=== PATIENT | female | born 1985 | race Caucasian/White ===

== ENCOUNTER 2020-03-05 17:56 | Emergency (ER) | payer MEDICAID, SELFPAY ==
[2020-03-05 18:18] VITALS: BP 132/84; PULSE 98; RESP 16; TEMP 37.5; O2SAT 98; BMI 46.3
--- NOTE | 2020-03-05 18:43 | CT_ITS ---
EXAMINATION: CT abdomen pelvis wo con CLINICAL INFORMATION: Reason for Exam lower back pain, flank pain, dysuria COMPARISON: No prior CT available for comparison. TECHNIQUE: Multidetector volumetric imaging was performed from the superior aspect of the liver through the pubic symphysis noncontrasted study. Sagittal and coronal reformatted images were obtained on the technologist's workstation. This CT examination was performed using dose optimization techniques as appropriate, variously including the following: *Automated exposure control *Adjustment of mA and/or kV according to patient size (this includes techniques or standardized protocols for targeted exams where dose is matched to indication/reason for exam; i.e. extremities or head) *Use of iterative reconstruction technique DLP: 965 mGy-cm FINDINGS: LOWER THORAX: Included lung bases are clear. HEPATOBILIARY: No focal hepatic lesions. No biliary ductal dilatation. GALLBLADDER: Gallbladder unremarkable. SPLEEN: Spleen is enlarged measuring up to 13.5 cm. PANCREAS: No focal mass or ductal dilatation. STOMACH AND GASTROINTESTINAL TRACT: Stomach is grossly unremarkable. There is no bowel distention or thickening. No CT evidence of appendicitis. ADRENALS: No adrenal nodules. KIDNEYS/URETERS: No hydronephrosis, stones or solid mass lesions. URINARY BLADDER: Partially decompressed. PELVIC VISCERA: Unremarkable PERITONEUM: No free air or fluid. LYMPH NODES: No lymphadenopathy. VASCULAR:Abdominal aorta normal in size, no aneurysm found. BONES, ABDOMINAL WALL AND SOFT TISSUES: Age-appropriate changes of the spine and skeletal system, no destructive osteolytic or osteosclerotic bone lesion found CT/CT abdomen pelvis wo con IMPRESSION: Spleen is borderline enlarged 13.5 cm exam otherwise normal. No CT explanation for patient's pain symptoms. No evidence of appendicitis, normal-size appendix identified. No bowel obstruction. No kidney stones or hydronephrosis.
--- NOTE | 2020-03-05 18:46 | ED_ITS ---
HPI - Back Pain/Injury General Chief Complaint: Back Pain/Injury Stated Complaint: BACK PAIN Time Seen by Provider: 03/05/20 18:43 Source: patient Mode of arrival: ambulatory Limitations: no limitations History of Present Illness HPI Narrative: 34-year-old female with no significant past medical history presents with 1 week of lower back pain, and urinary symptoms. States the pain has gotten worse over time and has been unrelieved with Motrin and Tylenol. She has had intermittent chills but has not taken a temperature to reported fever. She does not describe any chest pain or pressure, palpitations, shortness of breath, abdominal distention, fevers, edema, weakness, and any other concerns at this time. MD elicited complaint: back pain Onset (ago): day(s) (7) Timing: constant Severity: moderate (7) Pain scale (0-10): 7 Similar Symptoms Previously: No Quality: aching and throbbing Location: lumbar spine, left flank and right flank Exacerbating factors: movement and supine positioning Relieving factors: none Context: unknown Associated symptoms: increased urinary urgency, increased urinary frequency and chills Treatments prior to arrival: NSAIDS and acetaminophen Work related injury: No Related Data Previous Rx's Medication Instructions Recorded ibuprofen 600 mg PO Q6H PRN #60 tab 03/05/20 Allergies Allergy/AdvReac Type Severity Reaction Status Date / Time No Known Allergies Allergy Verified 03/05/20 18:43 Review of Systems Review of Systems: Constitutional: No Weight loss, No Fever, Positive Chills, ENT/Mouth: No Hearing loss, No Ear Pain, No Nasal Congestion, No Sinus Pain, No Hoarseness, No sore throat, No Rhinorrhea, No Swallowing Difficulty Cardiovascular: No Chest Pain, No SOB Respiratory: No Cough, No Dyspnea Gastrointestinal: No Nausea, No Vomiting, No Diarrhea, No abdominal Pain, No Hematochezia, No Melena Genitourinary: positive Dysuria, positive Urinary Frequency, No Hematuria, No Urinary Incontinence, Musculoskeletal: positive back pain Skin: No Skin Lesions, No rash Neuro: No Weakness, No Numbness, No Paresthesias, no loss of bowel or bladder incontinence, no saddle anesthesia Yes all other systems are reviewed and are negative [facility] Past Medical History Attestation statement: The following information was validated with the patient. Medical History PCOS (polycystic ovarian syndrome) Social History Social History Smoking Status: Never smoker Use of substances other than those prescribed or required for medical reasons: No Advance Directives: No Advance Directives Information Provided: Yes Physical Exam Vital Signs: Vital Signs: Last Vital Signs Temp 99.5 F 03/05/20 18:18 Pulse 98 03/05/20 18:18 Resp 16 03/05/20 18:18 BP 132/84 03/05/20 18:18 Pulse Ox 98 03/05/20 18:18 Body Mass Index 46.3 Appearance: Alert. Oriented X3. mild distress. Eyes: Pupils equal, round and reactive to light. ENT: Pharynx normal. Neck: Normal inspection. Neck supple. CVS: Normal heart rate and rhythm. Pulses normal. Respiratory: No respiratory distress. Breath sounds normal. Abdomen: Soft and suprapubic tenderness, bilateral CVA tenderness Skin: Skin warm and dry. Normal skin color. Normal skin turgor. Extremities: No lower extremity edema. pain to palpation along the lower lumbar spine Neuro: No motor deficit. No sensory deficit. Course Course Course Narrative: 34-year-old female with no significant past medical history presents with 1 week of lower back pain, bilateral flank pain, and urinary symptoms. We will order CT scan of the abdomen and pelvis, urinalysis, CBC and Chem 7. at this time patient states that her pain is manageable and does not want any medications because she is driving home. Urinalysis is positive for heme, CT scan shows splenomegaly. Plan is for patient to follow-up with primary care physician to further investigate splenomegaly and hematuria. Patient verbalizes understanding of and agrees to plan of care to discharge home. MDM - Back Pain/Injury MDM Narrative Medical decision making narrative: UTI Differential Diagnosis Differential diagnosis: Likely lumbar radiculopathy, sciatica, strain of lumbar region, renal colic, pyelonephritis, thoracic back pain, AAA and discitis Medical Records Attestation: I reviewed the patient's medical records. Lab Data Attestation: I reviewed the patient's lab results. Result diagrams: 03/05/20 18:54 03/05/20 18:54 Labs: Lab Results 11/29/20 11/29/20 11/29/20 Range/Units 18:54 18:54 18:54 WBC 10.5 (4.8-10.8) X10*3/uL RBC 4.32 (4.20-5.50) X10*6/uL Hgb 10.6 L (12.0-16.0) g/dl Hct 34.5 L (37-47) % MCV 79.9 L (80-98) fL MCH 24.5 L (27.0-33.0) pg MCHC 30.7 L (31.0-35.0) g/dl RDW 14.1 (11.0-16.0) % Plt Count 367 (160-400) X10*3/uL MPV 10.6 (9.4-12.3) fL Immature Gran % (Auto) 0.4 (0.0-0.4) % Neut % (Auto) 70.6 (45-73) % Lymph % (Auto) 24.6 (20-40) % [place] % (Auto) 4.1 (2-11) % Eos % (Auto) 0.1 (0-4) % Baso % (Auto) 0.2 (0-2) % Lymph # (Auto) 2.6 (1.2-4.9) X10*3/uL [place] # (Auto) 0.4 (0.1-1.2) X10*3/uL Eos # (Auto) 0.0 (0.0-0.4) X10*3/uL Baso # (Auto) 0.0 (0.0-0.2) X10*3/uL Abs Immat Gran (auto) 0.04 H (0.00-0.03) X10*3/uL Absolute Neuts (auto) 7.4 (2.0-8.3) X10*3/uL Absolute Nucleated RBC 0.000 (0.0-0.012) X10*3/uL Nucleated RBC % (auto) 0.0 (0.0-0.2) /100WBC Sodium 137 (135-145) mmol/L Potassium 3.9 (3.3-5.1) mmol/l Chloride 104 (96-108) mmol/L Carbon Dioxide 22 (22-29) mmol/L Anion Gap 15 (12-20) BUN 7 L (9-16) mg/dL Creatinine 0.77 (0.5-1.4) mg/dL Estim Creat Clear Calc 118.8 Estimated GFR > 60 Random Glucose 145 H (60-115) mg/dL Calcium 8.6 (8.4-10.2) mg/dL Hold Red Top Urine Color YELLOW Urine Appearance CLEAR Urine pH 6.0 (5.0-8.0) Ur Specific [place] >= 1.030 H (1.005-1.025) Urine Protein NEG (NEG-TRACE) MG/DL Urine Glucose (UA) NEG (NEG) MG/DL Urine Ketones NEG (NEG) MG/DL Urine Blood 1+ H (NEG) Urine Nitrite NEG (NEG) Ur Leukocyte Esterase NEG (NEG) Urine RBC 1-4 (0) /HPF Urine WBC 0 (0-4) /HPF Ur Squamous Epith Cells NONE /LPF Urine Bacteria NONE /LPF 03/05/20 Range/Units 18:56 WBC (4.8-10.8) X10*3/uL RBC (4.20-5.50) X10*6/uL Hgb (12.0-16.0) g/dl Hct (37-47) % MCV (80-98) fL MCH (27.0-33.0) pg MCHC (31.0-35.0) g/dl RDW (11.0-16.0) % Plt Count (160-400) X10*3/uL MPV (9.4-12.3) fL Immature Gran % (Auto) (0.0-0.4) % Neut % (Auto) (45-73) % Lymph % (Auto) (20-40) % [place] % (Auto) (2-11) % Eos % (Auto) (0-4) % Baso % (Auto) (0-2) % Lymph # (Auto) (1.2-4.9) X10*3/uL [place] # (Auto) (0.1-1.2) X10*3/uL Eos # (Auto) (0.0-0.4) X10*3/uL Baso # (Auto) (0.0-0.2) X10*3/uL Abs Immat Gran (auto) (0.00-0.03) X10*3/uL Absolute Neuts (auto) (2.0-8.3) X10*3/uL Absolute Nucleated RBC (0.0-0.012) X10*3/uL Nucleated RBC % (auto) (0.0-0.2) /100WBC Sodium (135-145) mmol/L Potassium (3.3-5.1) mmol/l Chloride (96-108) mmol/L Carbon Dioxide (22-29) mmol/L Anion Gap (12-20) BUN (9-16) mg/dL Creatinine (0.5-1.4) mg/dL Estim Creat Clear Calc Estimated GFR Random Glucose (60-115) mg/dL Calcium (8.4-10.2) mg/dL Hold Red Top See Note Urine Color Urine Appearance Urine pH (5.0-8.0) Ur Specific [place] (1.005-1.025) Urine Protein (NEG-TRACE) MG/DL Urine Glucose (UA) (NEG) MG/DL Urine Ketones (NEG) MG/DL Urine Blood (NEG) Urine Nitrite (NEG) Ur Leukocyte Esterase (NEG) Urine RBC (0) /HPF Urine WBC (0-4) /HPF Ur Squamous Epith Cells /LPF Urine Bacteria /LPF Imaging Data CT scan - abdomen: Attestation: I personally reviewed and interpreted this imaging study as follows: Radiologist's impression: EXAMINATION: CT abdomen pelvis wo con CLINICAL INFORMATION: Reason for Exam lower back pain, flank pain, dysuria COMPARISON: No prior CT available for comparison. TECHNIQUE: Multidetector volumetric imaging was performed from the superior aspect of the liver through the pubic symphysis noncontrasted study. Sagittal and coronal reformatted images were obtained on the technologist's workstation. This CT examination was performed using dose optimization techniques as appropriate, variously including the following: *Automated exposure control *Adjustment of mA and/or kV according to patient size (this includes techniques or standardized protocols for targeted exams where dose is matched to indication/reason for exam; i.e. extremities or head) *Use of iterative reconstruction technique DLP: 965 mGy-cm FINDINGS: LOWER THORAX: Included lung bases are clear. HEPATOBILIARY: No focal hepatic lesions. No biliary ductal dilatation. GALLBLADDER: Gallbladder unremarkable. SPLEEN: Spleen is enlarged measuring up to 13.5 cm. PANCREAS: No focal mass or ductal dilatation. STOMACH AND GASTROINTESTINAL TRACT: Stomach is grossly unremarkable. There is no bowel distention or thickening. No CT evidence of appendicitis. ADRENALS: No adrenal nodules. KIDNEYS/URETERS: No hydronephrosis, stones or solid mass lesions. URINARY BLADDER: Partially decompressed. PELVIC VISCERA: Unremarkable PERITONEUM: No free air or fluid. LYMPH NODES: No lymphadenopathy. VASCULAR:Abdominal aorta normal in size, no aneurysm found. BONES, ABDOMINAL WALL AND SOFT TISSUES: Age-appropriate changes of the spine and skeletal system, no destructive osteolytic or osteosclerotic bone lesion found CT/CT abdomen pelvis wo con IMPRESSION: Spleen is borderline enlarged 13.5 cm exam otherwise normal. No CT explanation for patient's pain symptoms. No evidence of appendicitis, normal-size appendix identified. No bowel obstruction. No kidney stones or hydronephrosis. Discharge Plan Discharge Clinical Impression: Strain of lumbar region, Hematuria, Splenomegaly Patient Disposition: Home, Self-Care Instructions: Low Back Strain (ED), Hematuria (ED) Additional Instructions: you were evaluated for lower back pain. CT scan of the abdomen and pelvis shows a normal spine, however you do have an enlarged spleen. Please follow-up with your primary care physician for further workup. This may be a normal finding. Urinalysis indicates hematuria. Please follow-up with primary care physician to ensure that the hematuria resolves. Thank you for choosing this emergency department for evaluation. Please follow-up with primary care physician as needed. Return to the emergency department for any new, concerning, or worsening symptoms. Prescriptions: New ibuprofen 600 mg tablet 600 mg PO Q6H PRN (Reason: pain) Qty: 60 RF: 0 Interventions: ED Discharge Assessment Last Done: 03/05/20 21:55 Discharge Date/Time: 03/05/20 21:56
[2020-03-05 19:09] LABS: MANUAL DIFF FLAG NO
[2020-03-05 19:13] LABS: Basophils Percent Auto 0.2 % (0-2); Eosinophils Percent Auto 0.1 % (0-4); Hematocrit 34.5 % (37-47); Hemoglobin 10.6 g/dl (12.0-16.0); Imm Gran Abs Auto 0.04 X10*3/uL (0.00-0.03); Imm Gran Pct Auto 0.4 % (0.0-0.4); Lymphocytes Absolute Auto 2.6 X10*3/uL (1.2-4.9); Lymphocytes Percent Auto 24.6 % (20-40); Mean Corpuscular HGB Conc 30.7 g/dl (31.0-35.0); Mean Corpuscular Hemoglobin 24.5 pg (27.0-33.0); Mean Corpuscular Volume 79.9 fL (80-98); Mean Platelet Volume 10.6 fL (9.4-12.3); Monocytes Absolute Auto 0.4 X10*3/uL (0.1-1.2); Monocytes Percent Auto 4.1 % (2-11); Neutrophils Absolute Auto 7.4 X10*3/uL (2.0-8.3); Neutrophils Percent Auto 70.6 % (45-73); Platelet Count 367 X10*3/uL (160-400); Red Blood Count 4.32 X10*6/uL (4.20-5.50); Red Cell Distribution Width 14.1 % (11.0-16.0); White Blood Count 10.5 X10*3/uL (4.8-10.8)
[2020-03-05 19:14] LABS: Glucose Urine UA NEG (NEG); Leukocyte Esterase Urine NEG (NEG); Nitrite Urine NEG (NEG); Specific Gravity - Urine >= 1.030 (1.005-1.025); Urine Blood 1+ (NEG); Urine Ketones NEG (NEG); Urine Protein NEG (NEG-TRACE)
[2020-03-05 19:17] LABS: Appearance Urine CLEAR; Color Urine YELLOW
[2020-03-05 19:25] LABS: WBC Urine 0 /HPF (0-4)
[2020-03-05 19:26] LABS: Anion Gap 15 (12-20); Blood Urea Nitrogen 7 mg/dL (9-16); Calcium 8.6 mg/dL (8.4-10.2); Carbon Dioxide 22 mmol/L (22-29); Chloride 104 mmol/L (96-108); Creatinine Clr Calc Pharmacy 118.8; Estimated Glomerular Filt Rate > 60; Glucose Random 145 mg/dL (60-115); Potassium 3.9 mmol/l (3.3-5.1); Sodium 137 mmol/L (135-145)
== END 2020-03-05 21:56 | disposition home or self-care (01) ==
PROVIDERS: Nurse Practitioner Family; Emergency Provider Emergency Medicine; PCP Internal Medicine
DX: S39.012A Strain of muscle, fascia and tendon of lower back, initial encounter (principal); X58.XXXA Exposure to other specified factors, initial encounter; R10.9 Unspecified abdominal pain; Y93.9 Activity, unspecified; Y92.9 Unspecified place or not applicable; Y99.9 Unspecified external cause status
CPT/HCPCS: 36415; 74176; 80048; 81001; 85025; 99283; 99284

== ENCOUNTER 2021-09-10 21:11 | Emergency (ER) | payer MEDICAID, SELFPAY ==
--- NOTE | ~2021-09-10 | CT_ITS ---
EXAMINATION: CT HEAD WITHOUT CONTRAST CLINICAL INFORMATION: Dizziness. COMPARISON: None available. TECHNIQUE: Contiguous axial imaging was performed from the skull base to vertex without intravenous administration of contrast. This CT examination was performed using dose optimization techniques as appropriate, variously including the following: *Automated exposure control. *Adjustment of mA and/or kV according to patient size (this includes techniques or standardized protocols for targeted exams where dose is matched to indication/reason for exam; i.e. extremities or head). *Use of iterative reconstruction technique. DLP: 680 mGy-cm FINDINGS: There is no evidence of acute intracranial hemorrhage or edematous territorial infarction. There is no abnormal attenuation within the brain parenchyma. [place]-white matter differentiation is preserved. The ventricles are normal in size and configuration. No evidence for obstructive hydrocephalus. The cerebellar tonsils are positioned at the level the foramen magnum. The suprasellar cistern remains widely patent. No abnormal mass effect or midline shift. No extra-axial fluid collections. No acute soft tissue or osseous abnormalities. Mild mucosal thickening of the the visualized paranasal sinuses. Mild leftward nasal septal deviation. Mild thinning of the sigmoid plates bilaterally without jugular bulb dehiscence. The mastoid air cells and middle ear cavities are clear. CT/CT head/brain wo con IMPRESSION: No evidence of acute intracranial hemorrhage or edematous territorial infarction.
[2021-09-10 21:24] VITALS: BP 138/77; PULSE 94; RESP 15; TEMP 37.1; O2SAT 98; BMI 45.7
[2021-09-10 21:57] LABS: MANUAL DIFF FLAG NO
[2021-09-10 22:00] VITALS: RESP 16
[2021-09-10 22:02] LABS: Basophils Percent Auto 0.1 % (0-2); Eosinophils Percent Auto 0.1 % (0-4); Hematocrit 33.4 % (37.0-47.0); Hemoglobin 10.4 g/dl (12.0-16.0); Imm Gran Abs Auto 0.03 X10*3/uL (0.00-0.03); Imm Gran Pct Auto 0.4 % (0.0-0.4); Lymphocytes Absolute Auto 2.3 X10*3/uL (1.2-4.9); Lymphocytes Percent Auto 28.3 % (20-40); Mean Corpuscular HGB Conc 31.1 g/dl (31.0-35.0); Mean Corpuscular Hemoglobin 25.5 pg (27.0-33.0); Mean Corpuscular Volume 81.9 fL (80.0-98.0); Mean Platelet Volume 10.6 fL (9.4-12.3); Monocytes Absolute Auto 0.5 X10*3/uL (0.1-1.2); Monocytes Percent Auto 5.6 % (2-11); Neutrophils Absolute Auto 5.4 x10*3/uL (2.0-8.3); Neutrophils Percent Auto 65.5 % (45-73); Platelet Count 240 X10*3/uL (160-400); Red Blood Count 4.08 X10*6/uL (4.20-5.50); Red Cell Distribution Width 14.5 % (11.0-16.0); White Blood Count 8.2 X10*3/uL (4.8-10.8)
[2021-09-10 22:37] LABS: Alanine Aminotransferase 44 U/L (0-31); Alkaline Phosphatase 74 U/L (39-117); Anion Gap 12 (12-20); Aspartate Amino Transferase 30 U/L (5-31); Bilirubin Total 0.4 mg/dL (0.0-1.0); Blood Urea Nitrogen 10 mg/dL (9-16); Calcium 9.3 mg/dL (8.4-10.2); Carbon Dioxide 28 mmol/L (22-29); Chloride 102 mmol/L (96-108); Creatinine Clr Calc Pharmacy 115.7; Estimated Glomerular Filt Rate > 60; Glucose Random 124 mg/dL (60-115); Lipase 44 U/L (8-78); Potassium 4.3 mmol/L (3.3-5.1); Sodium 138 mmol/L (135-145); Total Protein 7.5 g/dL (6.5-8.0)
--- NOTE | 2021-09-10 23:24 | ED.NAVMDI ---
HPI - Nausea/Vomiting/Diarrhea General Chief complaint: Abdominal Pain Stated complaint: Confusion/Dizziness Time Seen by Provider: 09/10/21 21:31 Source: patient Mode of arrival: ambulatory Limitations: no limitations History of Present Illness HPI Narrative: was outside at parades all weekend - noted last night felt 10 to 15 seconds of dizziness then has just felt off all day, foggy, tingling on the top of her head that comes and goes, and difficulty focusing initially thought it was due to venlafaxine but no change in dosing. She denies any new changes other than being outside all weekend. MD elicited complaint: diarrhea (dizziness, feels foggy) Pertinent past history: other (PCOS) Onset (ago): day(s) (1) Associated nausea: No Associated abdominal pain: No Location of pain: none Severity: mild Exacerbating factors: none Relieving factors: none Context: other (outside in heat all weekend, no other changes) Associated symptoms: nausea/vomiting and other (dizziness) Related Data Previous Rx's Medication Instructions Recorded ibuprofen 600 mg tablet 600 mg PO Q6H PRN #60 tab 03/05/20 Allergies Allergy/AdvReac Type Severity Reaction Status Date / Time No Known Allergies Allergy Verified 03/05/20 18:43 Review of Systems Review of Systems: Constitutional : No Fever, No Chills, No Fatigue, No Malaise ENT/Mouth : No sore throat, No Rhinorrhea Eyes: No Eye Pain, No Swelling, No Redness Cardiovascular : No Chest Pain, No SOB, No Dyspnea on Exertion, No Orthopnea, No Edema, No Palpitations Respiratory : No Cough, No Sputum, No Wheezing Gastrointestinal : No Nausea, No Vomiting, pos Diarrhea, No Constipation, No abdominal Pain, No Hematochezia, No Melena Genitourinary : No Dysuria, No Urinary Frequency, No Hematuria, Musculoskeletal : No joint pain, No Myalgias, No Joint Swelling Skin : No Skin Lesions, No rash Neuro : No Weakness, No Numbness, pos Dizziness, No Headache, pos fogginess Psych : No Anxiety/Panic, No Depression Heme/Lymph: No Bruising, No Bleeding,No Lymphadenopathy Endocrine : No Polyuria, No Polydipsia All other systems reviewed and are negative Gastrointestinal: Gastrointestinal: Denies nausea PMFSH Past Medical History Attestation statement: The following information was validated with the patient. Medical History PCOS (polycystic ovarian syndrome) Social History Social History (Updated 09/10/21 @ 23:31 by Peyton Bartholomew DO) Patient Tobacco Use Status: Never used Tobacco Use of substances other than those prescribed or required for medical reasons: No Advance Directives: No Physical Exam Vital Signs: Vital Signs: Last Vital Signs Temp 98.8 F 09/10/21 21:24 Pulse 70 09/11/21 00:00 Resp 16 09/11/21 00:00 BP 139/94 H 09/11/21 00:00 Pulse Ox 100 09/11/21 00:00 BMI result Body Mass Index 45.7 Appearance: Alert. Oriented X3. No acute distress. Eyes: Pupils equal, round and reactive to light. ENT: Pharynx normal. Neck: Normal inspection. Neck supple. CVS: Normal heart rate and rhythm. Pulses normal. Respiratory: No respiratory distress. Breath sounds normal. Abdomen: Soft and non-tender. Skin: Skin warm and dry. Normal skin color. Normal skin turgor. Extremities: No lower extremity edema. No calf ttp Neuro: Oriented X 3. No motor deficit. No sensory deficit. Cn2-12 intact, no ataxia Course Course Course Narrative: CT head and labs negative - stable for DC at this time MDM - Nausea/Vomiting/Diarrhea MDM Narrative Medical decision making narrative: 36 yo female hx of PCOS only on venlafaxine at home at this time c/o feeling dizzy while sitting last night then today she noted she felt off with feeling weird tingling in her head along with feeling foggy. No change in her medication, no missed doses. She notes this happened one time before but it was when she missed her meds. At this time she is neuro intact. Will obtain basic labs, hydrate her and obtain imaging for mass. Dispo per results and findings. Lab Data Result diagrams: 09/10/21 21:51 09/10/21 21:51 Labs: Lab Results 09/10/21 09/10/21 09/10/21 Range/Units 21:51 21:51 23:35 WBC 8.2 (4.8-10.8) X10*3/uL RBC 4.08 L (4.20-5.50) X10*6/uL Hgb 10.4 L (12.0-16.0) g/dl Hct 33.4 L (37.0-47.0) % MCV 81.9 (80.0-98.0) fL MCH 25.5 L (27.0-33.0) pg MCHC 31.1 (31.0-35.0) g/dl RDW 14.5 (11.0-16.0) % Plt Count 240 (160-400) X10*3/uL MPV 10.6 (9.4-12.3) fL Immature Gran % (Auto) 0.4 (0.0-0.4) % Neut % (Auto) 65.5 (45-73) % Lymph % (Auto) 28.3 (20-40) % [place] % (Auto) 5.6 (2-11) % Eos % (Auto) 0.1 (0-4) % Baso % (Auto) 0.1 (0-2) % Lymph # (Auto) 2.3 (1.2-4.9) X10*3/uL [place] # (Auto) 0.5 (0.1-1.2) X10*3/uL Eos # (Auto) 0.0 (0.0-0.4) X10*3/uL Baso # (Auto) 0.0 (0.0-0.2) X10*3/uL Abs Immat Gran (auto) 0.03 (0.00-0.03) X10*3/uL Absolute Neuts (auto) 5.4 (2.0-8.3) x10*3/uL Absolute Nucleated RBC 0.000 (0.0-0.012) X10*3/uL Nucleated RBC % (auto) 0.0 (0.0-0.2) /100WBC Sodium 138 (135-145) mmol/L Potassium 4.3 (3.3-5.1) mmol/L Chloride 102 (96-108) mmol/L Carbon Dioxide 28 (22-29) mmol/L Anion Gap 12 (12-20) BUN 10 (9-16) mg/dL Creatinine 0.80 (0.5-1.4) mg/dL Estim Creat Clear Calc 115.7 Estimated GFR > 60 Random Glucose 124 H (60-115) mg/dL Calcium 9.3 D (8.4-10.2) mg/dL Total Bilirubin 0.4 (0.0-1.0) mg/dL AST 30 (5-31) U/L ALT 44 H (0-31) U/L Alkaline Phosphatase 74 (39-117) U/L Total Protein 7.5 (6.5-8.0) g/dL Albumin 4.0 (3.5-5.0) g/dL Lipase 44 (8-78) U/L COVID-19 ([facility]) Negative (Negative) COVID-19 Clin Com See Note Discharge Plan Discharge Clinical Impression: Lightheadedness Patient Disposition: Home, Self-Care Instructions: Lightheadedness (ED) Additional Instructions: labs and CT head negative at this time return to ED for any worsening symptoms or concerns Prescriptions: No Action ibuprofen 600 mg tablet 600 mg PO Q6H PRN (Reason: pain) Qty: 60 0RF Referrals: Physician,Unknown J [Primary Care Provider] - 2 days (PCP two days if not better) Stand Alone Forms: Work/School Release
[2021-09-10 23:56] LABS: COVID-19 Test Negative (Negative)
[2021-09-11] VITALS: BP 139/94; PULSE 70; RESP 16; O2SAT 100
[2021-09-11] MEDS: 0.9 % Sodium Chloride 1,000 ML 999 ML IV (00:13)
[2021-09-11 00:35] LABS: Appearance Urine CLEAR; Color Urine YELLOW; Glucose Urine UA NEG (NEG); Leukocyte Esterase Urine NEG (NEG); Nitrite Urine NEG (NEG); PH 6.5 (5.0-8.0); Specific Gravity - Urine 1.025 (1.005-1.025); Urine Blood NEG (NEG); Urine Ketones NEG (NEG); Urine Protein NEG (NEG-TRACE)
[2021-09-11 00:58] LABS: UPreg QC Valid YES; Urine Pregnancy NEGATIVE (NEGATIVE)
== END 2021-09-11 01:10 | disposition home or self-care (01) ==
PROVIDERS: Emergency Provider Emergency Medicine
DX: R42 Dizziness and giddiness (principal); Z20.822 Contact with and (suspected) exposure to COVID-19; R19.7 Diarrhea, unspecified
CPT/HCPCS: 36415; 70450; 80053; 81003; 81025; 83690; 85025; 87635; 96360; 99283; 99284

== ENCOUNTER 2021-10-13 22:13 | Emergency (ER) | payer MEDICAID, SELFPAY ==
--- NOTE | 2021-10-13 | ECG_ITS ---
Test Reason : CHEST PAIN Blood Pressure : / mmHG Vent. Rate : 064 BPM Atrial Rate : 064 BPM P-R Int : 136 ms QRS Dur : 092 ms QT Int : 414 ms P-R-T Axes : 029 049 044 degrees QTc Int : 427 ms Normal sinus rhythm with sinus arrhythmia Normal ECG No previous ECGs available Referred By: Generic ED Physician Electronically Signed By:Herbie Paige
--- NOTE | ~2021-10-13 | XR_ITS ---
EXAMINATION: XR CHEST, 2 VIEWS CLINICAL INFORMATION: Chest pain COMPARISON: 04/18/2007 TECHNIQUE: PA and lateral views of the chest were obtained. FINDINGS: Linear pleural parenchymal scarring is evident in the right upper lobe anteriorly as seen on the lateral view. Linear pleural parenchymal scarring is also suspected in the lingula. No consolidation, pneumothorax, or pleural effusion. Cardiac and mediastinal contours are normal. Pulmonary vasculature is unremarkable. Trachea is midline. Osseous structures are unremarkable. XR/XR chest 2V IMPRESSION: No acute cardiopulmonary findings.
[2021-10-13 22:15] VITALS: BP 140/86; PULSE 75; RESP 16; TEMP 36.1; O2SAT 99; BMI 45.7
[2021-10-13 22:46] LABS: MANUAL DIFF FLAG NO
[2021-10-13 22:48] LABS: Basophils Percent Auto 0.2 % (0-2); Eosinophils Percent Auto 0.1 % (0-4); Hematocrit 29.1 % (37.0-47.0); Hemoglobin 8.9 g/dl (12.0-16.0); Imm Gran Abs Auto 0.07 X10*3/uL (0.00-0.03); Imm Gran Pct Auto 0.8 % (0.0-0.4); Lymphocytes Absolute Auto 2.6 X10*3/uL (1.2-4.9); Lymphocytes Percent Auto 29.7 % (20-40); Mean Corpuscular HGB Conc 30.6 g/dl (31.0-35.0); Mean Corpuscular Hemoglobin 25.5 pg (27.0-33.0); Mean Corpuscular Volume 83.4 fL (80.0-98.0); Mean Platelet Volume 10.4 fL (9.4-12.3); Monocytes Absolute Auto 0.4 X10*3/uL (0.1-1.2); Monocytes Percent Auto 4.5 % (2-11); Neutrophils Absolute Auto 5.7 x10*3/uL (2.0-8.3); Neutrophils Percent Auto 64.7 % (45-73); Platelet Count 246 X10*3/uL (160-400); Red Blood Count 3.49 X10*6/uL (4.20-5.50); White Blood Count 8.9 X10*3/uL (4.8-10.8)
--- NOTE | 2021-10-13 22:58 | ED.CHESTPAIN ---
HPI - Chest Pain General Chief Complaint: Chest Pain Stated Complaint: Chest pain, numbness in left hand Time Seen by Provider: 10/13/21 22:26 Source: patient Mode of arrival: ambulatory Limitations: no limitations History of Present Illness HPI narrative: Patient presents emergency department for evaluation of chest pain. She reports it was of sudden onset at 11:00 o'clock this morning, able to point to an area of the left anterior chest with two fingers, described as stabbing pain, worse with deep inspiration, or certain movements. She denies any dizziness, lightheadedness, palpitations, shortness of breath, difficulty breathing, nausea, vomiting, abdominal pain. Trialed antacids with no relief. She was advised by her primary care provider to come to the emergency department for further evaluation. Denies personal history of DVT/PE, personal history of cancer, recent surgery or immobilization, contraceptive usage, or cigarette smoking. Related Data Previous Rx's Medication Instructions Recorded ibuprofen 600 mg tablet 600 mg PO Q6H PRN pain #60 tabs 03/05/20 Allergies Allergy/AdvReac Type Severity Reaction Status Date / Time gluten Allergy Nausea and Verified 10/13/21 22:18 Vomiting Sulfa (Sulfonamide Allergy Hives Verified 10/13/21 22:18 Antibiotics) Review of Systems Review of Systems: Constitutional : No Weight loss, No Fever, No Chills ENT/Mouth :? No sore throat, No Rhinorrhea Eyes: No Eye Pain, No Swelling Cardiovascular : pos Chest Pain, no SOB, no Dyspnea on Exertion, No Orthopnea, No Edema, No Palpitations Respiratory : No Cough, No Sputum Gastrointestinal : pos Nausea, No Vomiting, No Diarrhea, No abdominal Pain, No Hematochezia, No Melena Genitourinary : No Dysuria, No Urinary Frequency Musculoskeletal : No joint pain, No Myalgias, No Joint Swelling Skin : No Skin Lesions, No rash Neuro : No Weakness, No Numbness, No Dizziness, No Headache Psych : No Anxiety/Panic, No Depression Heme/Lymph: No Bruising, No Lymphadenopathy Endocrine : No Polyuria, No Polydipsia Yes all other systems are reviewed and are negative [facility] Past Medical History Medical History PCOS (polycystic ovarian syndrome) Social History Social History (Updated 09/10/21 @ 23:31 by Peyton Bartholomew DO) Patient Tobacco Use Status: Never used Tobacco Advance Directives: No Physical Exam Vital Signs: Vital Signs: Last Vital Signs Temp 97 F 10/13/21 22:15 Pulse 75 10/13/21 22:15 Resp 16 10/13/21 22:15 BP 140/86 H 10/13/21 22:15 Pulse Ox 99 10/13/21 22:15 O2 Del Method 10/13/21 22:15 BMI result Body Mass Index 45.7 Appearance: Alert.?Oriented to person, place and time. No acute distress.?Normal affect. Eyes: Pupils equal, round and reactive to light.? ENT: Pharynx normal.?? Neck: Normal inspection.? Neck supple.?? CVS: Heart sounds normal. Normal heart rate and rhythm.? Pulses normal.??No chest wall tenderness Respiratory: No respiratory distress.? Lung sounds clear to auscultation bilaterally?? Abdomen: Soft and non-tender. Normoactive bowel sounds. ? Skin: Skin warm and dry.? Normal skin color.? Extremities: No lower extremity edema.? No calf ttp? Neuro: Moves all extremities spontaneously. Sensation intact bilaterally. CN II-XII intact. No focal neuro deficits. Ambulates with normal steady gait. Course Course Course Narrative: Patient is a 36-year-old female with a past medical history of anemia, PCOS. She presents emergency department for evaluation of chest pain. Wells / PERC negative, However, she does report that she just recently finished a 5 day course of TXA for heavy menstrual bleeding. Therefore will obtain D-dimer. No risk factors for ACS. Reevaluation(s) Reevaluation #1: CBC reveals a normocytic anemia hemoglobin 8.9 hematocrit 29.1, down from prior levels 1 month ago at 10.4/33.4 respectively. CMP overall unremarkable, very mildly elevated transaminases, unlikely to be the source of pain. Troponin <3.5, EKG reveals normal sinus rhythm, no acute ischemic findings. Chest x-ray reveals no acute cardiopulmonary findings. D-dimer 151, therefore unlikely to be pulmonary embolism. Discussed all findings with patient, advised her plan of care for discharge home, Tylenol/ibuprofen as needed for pain follow-up with her primary care provider within 1-2 days. Discussed worrisome signs and symptoms to return back to emergency department. Was discharged home in stable condition. Time: 23:41 MDM - Chest Pain Medical Records Data Attestation: I reviewed the patient's medical records. Lab Data Attestation: I reviewed the patient's lab results. Result diagrams: 10/13/21 22:41 10/13/21 22:41 Labs: Lab Results 10/13/21 10/13/21 10/13/21 Range/Units 22:41 22:41 22:41 WBC 8.9 (4.8-10.8) X10*3/uL RBC 3.49 L (4.20-5.50) X10*6/uL Hgb 8.9 L (12.0-16.0) g/dl Hct 29.1 L (37.0-47.0) % MCV 83.4 (80.0-98.0) fL MCH 25.5 L (27.0-33.0) pg MCHC 30.6 L (31.0-35.0) g/dl RDW 16.0 (11.0-16.0) % Plt Count 246 (160-400) X10*3/uL MPV 10.4 (9.4-12.3) fL Immature Gran % (Auto) 0.8 H (0.0-0.4) % Neut % (Auto) 64.7 (45-73) % Lymph % (Auto) 29.7 (20-40) % [place] % (Auto) 4.5 (2-11) % Eos % (Auto) 0.1 (0-4) % Baso % (Auto) 0.2 (0-2) % Lymph # (Auto) 2.6 (1.2-4.9) X10*3/uL [place] # (Auto) 0.4 (0.1-1.2) X10*3/uL Eos # (Auto) 0.0 (0.0-0.4) X10*3/uL Baso # (Auto) 0.0 (0.0-0.2) X10*3/uL Abs Immat Gran (auto) 0.07 H (0.00-0.03) X10*3/uL Absolute Neuts (auto) 5.7 (2.0-8.3) x10*3/uL Absolute Nucleated RBC 0.000 (0.0-0.012) X10*3/uL Nucleated RBC % (auto) 0.0 (0.0-0.2) /100WBC D-Dimer High Sensitivty NG/ML Sodium 139 (135-145) mmol/L Potassium 4.4 (3.3-5.1) mmol/L Chloride 105 (96-108) mmol/L Carbon Dioxide 24 (22-29) mmol/L Anion Gap 14 (12-20) BUN 14 (9-16) mg/dL Creatinine 0.81 (0.5-1.4) mg/dL Estim Creat Clear Calc 114.2 Estimated GFR > 60 Random Glucose 97 (60-115) mg/dL Calcium 9.3 (8.4-10.2) mg/dL Total Bilirubin 0.3 (0.0-1.0) mg/dL AST 35 H (5-31) U/L ALT 41 H (0-31) U/L Alkaline Phosphatase 89 D (39-117) U/L Troponin I High Sens < 3.5 (<3.5-17.0) ng/L Total Protein 8.1 H (6.5-8.0) g/dL Albumin 4.3 (3.5-5.0) g/dL 10/13/21 Range/Units 23:20 WBC (4.8-10.8) X10*3/uL RBC (4.20-5.50) X10*6/uL Hgb (12.0-16.0) g/dl Hct (37.0-47.0) % MCV (80.0-98.0) fL MCH (27.0-33.0) pg MCHC (31.0-35.0) g/dl RDW (11.0-16.0) % Plt Count (160-400) X10*3/uL MPV (9.4-12.3) fL Immature Gran % (Auto) (0.0-0.4) % Neut % (Auto) (45-73) % Lymph % (Auto) (20-40) % [place] % (Auto) (2-11) % Eos % (Auto) (0-4) % Baso % (Auto) (0-2) % Lymph # (Auto) (1.2-4.9) X10*3/uL [place] # (Auto) (0.1-1.2) X10*3/uL Eos # (Auto) (0.0-0.4) X10*3/uL Baso # (Auto) (0.0-0.2) X10*3/uL Abs Immat Gran (auto) (0.00-0.03) X10*3/uL Absolute Neuts (auto) (2.0-8.3) x10*3/uL Absolute Nucleated RBC (0.0-0.012) X10*3/uL Nucleated RBC % (auto) (0.0-0.2) /100WBC D-Dimer High Sensitivty 151 NG/ML Sodium (135-145) mmol/L Potassium (3.3-5.1) mmol/L Chloride (96-108) mmol/L Carbon Dioxide (22-29) mmol/L Anion Gap (12-20) BUN (9-16) mg/dL Creatinine (0.5-1.4) mg/dL Estim Creat Clear Calc Estimated GFR Random Glucose (60-115) mg/dL Calcium (8.4-10.2) mg/dL Total Bilirubin (0.0-1.0) mg/dL AST (5-31) U/L ALT (0-31) U/L Alkaline Phosphatase (39-117) U/L Troponin I High Sens (<3.5-17.0) ng/L Total Protein (6.5-8.0) g/dL Albumin (3.5-5.0) g/dL Imaging Data Chest x-ray: Radiologist's impression: XR/XR chest 2V IMPRESSION: No acute cardiopulmonary findings. ECG Data ECG #1: Attestation: I personally reviewed and interpreted this ECG as follows: ECG interpretation date: 10/13/21 Prior ECG tracings: not available for review Interpretation: Rate: 64 Rhythm:? Normal sinus rhythm with arrhythmia B[place]:? Normal Normal P waves.? Normal MELO.?? Normal QRS complex.?? ST T wave :??No ST elevation, no ST depression, no T-wave inversion qTC: 427 prior studies:? None available for review The study has been interpreted contemporaneously by me. Discharge Plan Discharge Clinical Impression: Chest pain Patient Disposition: Home, Self-Care Instructions: Noncardiac Chest Pain (ED) Additional Instructions: Your blood work, EKG, and chest x-ray were overall normal. You do continue to be anemic, however you do not require a blood transfusion at this time. Please follow-up with your primary care doctor within 1-2 days. You may return back to emergency department any new or worsening symptoms or concerns. Prescriptions: No Action ibuprofen 600 mg tablet 600 mg PO Q6H PRN (Reason: pain) Qty: 60 0RF Referrals: Candace Sarah MD [Primary Care Provider] - 2 days
[2021-10-13 23:07] LABS: Alanine Aminotransferase 41 U/L (0-31); Albumin Level 4.3 g/dL (3.5-5.0); Alkaline Phosphatase 89 U/L (39-117); Anion Gap 14 (12-20); Aspartate Amino Transferase 35 U/L (5-31); Bilirubin Total 0.3 mg/dL (0.0-1.0); Blood Urea Nitrogen 14 mg/dL (9-16); Calcium 9.3 mg/dL (8.4-10.2); Carbon Dioxide 24 mmol/L (22-29); Chloride 105 mmol/L (96-108); Creatinine Clr Calc Pharmacy 114.2; Estimated Glomerular Filt Rate > 60; Glucose Random 97 mg/dL (60-115); Potassium 4.4 mmol/L (3.3-5.1); Sodium 139 mmol/L (135-145); Total Protein 8.1 g/dL (6.5-8.0); Troponin-I High Sensitivity < 3.5 ng/L (<3.5-17.0)
[2021-10-13 23:38] LABS: D Dimer High Sensitivity 151 NG/ML
[2021-10-14 00:42] VITALS: BP 132/80; PULSE 80; RESP 19; TEMP 36.9; O2SAT 100
== END 2021-10-14 00:43 | disposition home or self-care (01) ==
PROVIDERS: Nurse Practitioner Family; Emergency Provider Emergency Medicine; PCP Internal Medicine
DX: R07.9 Chest pain, unspecified (principal); D64.9 Anemia, unspecified
CPT/HCPCS: 36415; 71046; 80053; 84484; 85025; 85379; 93005; 99282; 99283

== ENCOUNTER 2022-01-22 21:40 | Emergency (ER) | payer MEDICAID, SELFPAY ==
--- NOTE | ~2022-01-22 | US_ITS ---
EXAMINATION: US VENOUS ULTRASOUND WITH DOPPLER LOWER EXTREMITY, RIGHT CLINICAL INFORMATION: Right leg pain and swelling COMPARISON: None TECHNIQUE: Ultrasound of the deep veins is performed from the hip to the calf with compression sonography and color and pulse Doppler assessment. Spectral analysis with color-flow imaging is performed. FINDINGS: There is normal venous compression and respiratory variation and augmented flow. The visualized common femoral vein, superficial femoral vein, profunda femoral vein, popliteal vein, and the trifurcation region shows no evidence of deep venous thrombosis. The contralateral left common femoral vein appears normal. There is no significant popliteal fossa cyst. If the patient's symptoms persist, followup ultrasound in 5 days 7 days might be of value to exclude proximal propagation from a non-visualized calf vein. US/US venous duplex LE RT IMPRESSION: No DVT demonstrated in the right lower extremity.
[2022-01-22 21:51] VITALS: BP 112/61; PULSE 97; RESP 18; TEMP 37.5; O2SAT 96; BMI 44.2
--- NOTE | 2022-01-22 22:21 | ED.GENADULT ---
HPI - General Adult General Chief complaint: General Medical Stated complaint: dizziness/ n/v Time Seen by Provider: 01/22/22 21:54 Source: patient and EMS Mode of arrival: EMS Limitations: no limitations History of Present Illness HPI narrative: 36-year-old female who had total hysterectomy for endometrial cancer on Friday as well as a gastric sleeve at [facility]. Patient tells me she was discharged home on Friday. For the last 2 days she has had nausea and poor p.o. intake approximately 20 cc of water daily. She is supposed to be drinking clears and protein shakes but unable to tolerate this. She does have Zofran SL at home as needed. She denies any abdominal pain, fevers, chills, diarrhea, constipation. She did speak to her surgeon (Negar Eaton) today recommended she come to the ER for some IV fluids. Related Data Previous Rx's Medication Instructions Recorded ibuprofen 600 mg tablet 600 mg PO Q6H PRN pain #60 tabs 03/05/20 Allergies Allergy/AdvReac Type Severity Reaction Status Date / Time gluten Allergy Nausea and Verified 10/13/21 22:18 Vomiting Sulfa (Sulfonamide Allergy Hives Verified 10/13/21 22:18 Antibiotics) Review of Systems Review of Systems: Yes all other systems are reviewed and are negative Constitutional: Constitutional: Reports no additional constitutional complaints, Denies body ache(s), Denies chills, Denies fever(s), Denies headache(s), Reports poor appetite and Denies weakness Eyes: Eyes: Reports no additional eye complaints and Denies change in vision ENT: Reports system reviewed and no additional complaints, except as documented, Denies dizziness, Denies headache(s), Denies nasal congestion, Denies nasal discharge and Denies neck pain Cardiovascular: Cardiovascular: Reports no additional cardiovascular complaints, Denies chest pain, Denies leg edema and Denies dyspnea Respiratory: Respiratory: Reports no additional respiratory complaints, Denies cough and Denies dyspnea Gastrointestinal: Gastrointestinal: Reports no additional gastrointestinal complaints, Denies abdominal pain, Denies diarrhea, Reports nausea and Denies vomiting Genitourinary: Genitourinary: Reports no additional female genitourinary complaints and Denies urinary incontinence Musculoskeletal: Musculoskeletal: Reports no additional musculoskeletal complaints, Denies back pain, Denies arthralgias, Denies joint swelling, Denies neck pain, Denies numbness and Denies tingling Integumentary/Breasts: Skin/Breast: Reports system reviewed and no additional complaints, except as docu and Denies rash Neurologic: Reports system reviewed and no additional complaints, except as documented, Denies dizziness, Denies headache(s), Denies numbness, Denies tingling and Denies weakness PMFSH Past Medical History Attestation statement: The following information was validated with the patient. Source: old records reviewed and nursing notes reviewed Medical History PCOS (polycystic ovarian syndrome) Social History Social History Patient Tobacco Use Status: Never used Tobacco Advance Directives: No Advance Directives Information Provided: No Physical Exam ED Vital Signs: Vital Signs - 24 hr 01/22/22 21:51 01/23/22 00:32 Temperature 99.5 F Pulse Rate 97 91 Respiratory Rate 18 16 Blood Pressure 112/61 105/63 Pulse Oximetry 96 99 Oxygen Delivery Method Room Air Room Air BMI result Body Mass Index 44.2 Const General: cooperative, healthy appearing, comfortable and no acute distress Orientation/consciousness: patient oriented x3 Limitations: no limitations HENMT Head: Yes normal to inspection Ears: hearing grossly normal bilaterally Eyes General: appearance normal, both eyes and all related structures Pupils: Equal, round and reactive pupils present Neck Neck: Yes normal visual inspection and Yes full ROM Chest Chest palpation & inspection: normal inspection of the chest Resp Effort & Inspection: normal respiratory effort Auscultation: clear to auscultation bilaterally Cardio Rate: regular rate Rhythm: regular rhythm Peripheral pulses: Peripheral pulses 2+ throughout GI Other: Incisional sites noted over the abdomen. There is some slight ecchymosis noted over the lower abdomen. Palpation (GI): Soft to palpation and nontender General: Yes no CVA tenderness Back/Spine/Pelvis Back: no CVA tenderness Thoracic/Lumbar Spine: thoracic and lumbar spine normal to inspection Skin General skin exam: no rashes or lesions noted Neuro General: patient oriented x3 and moves all extremities Cranial nerves: Yes Equal, round and reactive pupils present Cognition (Neuro): normal cognition Gait exam (Neuro): Normal gait present Extrem General: Yes normal to inspection Course Course Course Narrative: 2250-Pt also c/o right thigh cramping/swelling since being released from the hospital. Was on heparin SQ while hospitalized. Not on any anticoagulation after being released. Patient has some tenderness the right thigh. Do not appreciate any swelling. Also some right calf discomfort. No swelling, redness or warmth. Palpable distal pulses Due to recent surgery will check ultrasound Reevaluation(s) Reevaluation #1: 0030-labs are unremarkable. Ultrasound is negative for DVT. Patient feels much improved after receiving 1 L of fluid here in the emergency room and 500 mL of fluid by EMS. She is tolerating sips of water with no vomiting. Plan for discharge home with follow-up with her outpatient providers. Reviewed worrisome signs and symptoms of when to return to the emergency room. Comfortable plan for discharge home. Medical Decision Making MDM Narrative Medical decision making narrative: 36-year-old female who had a gastric sleeve in total hysterectomy last week at [facility] for endometrial cancer presents today with 2 days of decreased p.o. intake and nausea with no reports of abdominal pain, fevers or changes in her bowels. Abdomen soft nontender. Patient tells me she was referred in by her surgeon for some IV fluids and hydration. Will check labs, give IV fluid Medical Records Medical records reviewed: Yes I reviewed the patient's medical records. Lab Data Lab results reviewed: Yes I reviewed the patient's lab results. Result diagrams: 01/22/22 23:37 01/22/22 23:37 Labs: Lab Results 01/22/22 01/22/22 Range/Units 23:37 23:37 WBC 8.7 (4.8-10.8) X10*3/uL RBC 3.72 L (4.20-5.50) X10*6/uL Hgb 10.0 L (12.0-16.0) g/dl Hct 31.0 L (37.0-47.0) % MCV 83.3 (80.0-98.0) fL MCH 26.9 L (27.0-33.0) pg MCHC 32.3 (31.0-35.0) g/dl RDW 14.2 (11.0-16.0) % Plt Count 262 (160-400) X10*3/uL MPV 10.0 (9.4-12.3) fL Immature Gran % (Auto) 0.7 H (0.0-0.4) % Neut % (Auto) 74.4 H (45-73) % Lymph % (Auto) 18.4 L (20-40) % [place] % (Auto) 6.5 (2-11) % Eos % (Auto) 0.0 (0-4) % Baso % (Auto) 0.0 (0-2) % Lymph # (Auto) 1.6 (1.2-4.9) X10*3/uL [place] # (Auto) 0.6 (0.1-1.2) X10*3/uL Eos # (Auto) 0.0 (0.0-0.4) X10*3/uL Baso # (Auto) 0.0 (0.0-0.2) X10*3/uL Abs Immat Gran (auto) 0.06 H (0.00-0.03) X10*3/uL Absolute Neuts (auto) 6.4 (2.0-8.3) x10*3/uL Absolute Nucleated RBC 0.000 (0.0-0.012) X10*3/uL Nucleated RBC % (auto) 0.0 (0.0-0.2) /100WBC Sodium 139 (135-145) mmol/L Potassium 4.3 (3.3-5.1) mmol/L Chloride 105 (96-108) mmol/L Carbon Dioxide 20 L (22-29) mmol/L Anion Gap 18 (12-20) BUN 11 (9-16) mg/dL Creatinine 0.63 (0.5-1.4) mg/dL Estim Creat Clear Calc 144.1 Estimated GFR > 60 Random Glucose 75 (60-115) mg/dL Calcium 8.6 D (8.4-10.2) mg/dL Magnesium 1.7 (1.6-2.6) mg/dL Total Bilirubin 0.6 (0.0-1.0) mg/dL Direct Bilirubin 0.2 (0.0-0.5) mg/dL AST 18 D (5-31) U/L ALT 24 (0-31) U/L Alkaline Phosphatase 91 (39-117) U/L Total Protein 7.0 (6.5-8.0) g/dL Albumin 3.8 (3.5-5.0) g/dL Imaging Data Venous US: Attestation: I personally reviewed and interpreted this imaging study as follows: Radiologist's impression: [address] [address] Ultrasound Report Signed Patient: Debbie Gallardo MR#: [id number] : 1985 Acct:[id number] Age/Sex: 36 / F ADM Date: 01/22/22 Loc: .ED Attending Dr: Ordering Physician: Ilene Ramsay NP Date of Service: 01/22/22 Procedure(s): US venous duplex LE RT Accession Number(s): [id number] cc: Ilene Ramsay NP~ EXAMINATION:? US VENOUS ULTRASOUND WITH DOPPLER LOWER EXTREMITY, RIGHT CLINICAL INFORMATION:? Right leg pain and swelling COMPARISON:? None TECHNIQUE: Ultrasound of the deep veins is performed from the hip to the calf with compression sonography and color and pulse Doppler assessment. Spectral analysis with color-flow imaging is performed. FINDINGS: There is normal venous compression and respiratory variation and augmented flow. The visualized common femoral vein, superficial femoral vein, profunda femoral vein, popliteal vein, and the trifurcation region shows no evidence of deep venous thrombosis. The contralateral left common femoral vein appears normal.? There is no significant popliteal fossa cyst. If the patient's symptoms persist, followup ultrasound in 5 days 7 days might be of value to exclude proximal propagation from a non-visualized calf vein. US/US venous duplex LE RT IMPRESSION: No DVT demonstrated in the right lower extremity. Discharge Plan Discharge Clinical Impression: Dehydration, mild Patient Disposition: Home, Self-Care Instructions: Dehydration (ED) Additional Instructions: Follow-up with your bariatric surgeon Lab work was reassuring Ultrasound of your right leg is negative for a blood clot Prescriptions: No Action ibuprofen 600 mg tablet 600 mg PO Q6H PRN (Reason: pain) Qty: 60 0RF Referrals: Clarisa Norman MD [Primary Care Provider] -
--- OUTSIDE RECORDS SUMMARY | 2022-01-22 22:26 | XMS_ITS | Continuity of Care Document ---
:1985 Author Organization [facility] On[facility] Address [address] [place] [id number]- Care Team Providers Name Role Phone Candace Sarah MD A Primary Care Physician [place] [facility] [place] 11/13[place]21 - 12/13/21 [facility] On[facility] [address] [place] [id number]- Attending Physician: Selena Negron Admitting Physician: AdmSelena marks Referring Physician: AdmtrSelena Allergies, Adverse Reactions, Alerts Substance Reaction Severity Status sulfADIAZINE Active Medications albuterol CFC free 90 mcg/inh inhalation aerosol 1, puffs, Inhalation, 4 times a day, PRN, # 25 Gm, Refills 0, Maintenance, 11/13/21 14:27:00 EDT, Aerosol Start Date: 11/13/21 Status: OrderedFlovent Diskus 50 mcg/inh inhalation powder 1 puffs, Inhalation, 2 times a day, # 60 each, 0 Refills, Maintenance, 11/13/21 14:27:00 EDT, Powder, Partial fill upon patient request if the prescription is for a schedule II opioid drug. Start Date: 11/13/21 Status: Orderedvenlafaxine 150 mg oral capsule, extended release 150 mg, 1, capsule, By Mouth, Daily, Refills 0, Maintenance, 11/13/21 10:21:00 EDT, Partial fill upon patient request if the prescription is for a schedule II opioid drug. Start Date: 11/13/21 Status: Ordered Problem List Condition Effective Dates Status Health Status Informant Abnormal uterine bleeding Active (AUB)(Confirmed) Anxiety(Confirmed) Active Asthma(Confirmed) Active Depressed(Confirmed) Active Hx of borderline personality Active disorder(Confirmed) Menorrhagia with irregular Active cycle(Confirmed) Obesity(Confirmed) Active PCOS (polycystic ovarian Active syndrome)(Confirmed) Severe obesity(Confirmed) Active Fatty liver(Confirmed) Active Social History Social History Type Response Smoking Status Never (less than 100 in life time) entered on: 11/13/21 Sex Care Team PersonnelName: Candace Sarah MD Address: [address] [place] [address] [place] [address]
--- OUTSIDE RECORDS SUMMARY | 2022-01-22 22:26 | XMS_ITS | Continuity of Care Document ---
:1985 Author Organization [facility] On[facility] Address [address] [place] [id number]- Care Team Providers Name Role Phone Candace Sarah MD A Primary Care Physician Encounter [facility] [place] Date(s): 10/31/21 - 11/30/21 [facility] Oncology [address] [place] [id number] Allergies, Adverse Reactions, Alerts Substance Reaction Severity [...] Care Team PersonnelName: Candace Sarah MD Address: [address] [place] [id number]
--- OUTSIDE RECORDS SUMMARY | 2022-01-22 22:26 | XMS_ITS | Continuity of Care Document ---
:1985 Author Organization [facility] Address [address] [place] [address]- Care Team Providers Name Role Phone Not on Staff, PCP Primary Care Physician Unavailable Encounter [facility] Date(s): 10/27/20 - 11/26/[address] [id number]- Attending Physician: Selena Negron Admitting Physician: Admtr, Ar8 Referring Physician: Admtr, Ar8 Allergies, Adverse Reactions, Alerts Substance Reaction Severity Status sulfADIAZINE Active
[2022-01-22] MEDS: 0.9 % Sodium Chloride 1,000 ML 999 ML IV (22:54)
[2022-01-22 23:42] LABS: Imm Gran Abs Auto 0.06 X10*3/uL (0.00-0.03); Imm Gran Pct Auto 0.7 % (0.0-0.4); Lymphocytes Absolute Auto 1.6 X10*3/uL (1.2-4.9); Lymphocytes Percent Auto 18.4 % (20-40); MANUAL DIFF FLAG NO; Mean Corpuscular HGB Conc 32.3 g/dl (31.0-35.0); Mean Corpuscular Hemoglobin 26.9 pg (27.0-33.0); Mean Corpuscular Volume 83.3 fL (80.0-98.0); Monocytes Absolute Auto 0.6 X10*3/uL (0.1-1.2); Monocytes Percent Auto 6.5 % (2-11); Neutrophils Absolute Auto 6.4 x10*3/uL (2.0-8.3); Neutrophils Percent Auto 74.4 % (45-73); Platelet Count 262 X10*3/uL (160-400); Red Blood Count 3.72 X10*6/uL (4.20-5.50); Red Cell Distribution Width 14.2 % (11.0-16.0); White Blood Count 8.7 X10*3/uL (4.8-10.8)
[2022-01-23 00:02] LABS: Alanine Aminotransferase 24 U/L (0-31); Albumin Level 3.8 g/dL (3.5-5.0); Alkaline Phosphatase 91 U/L (39-117); Anion Gap 18 (12-20); Aspartate Amino Transferase 18 U/L (5-31); Bilirubin Direct 0.2 mg/dL (0.0-0.5); Bilirubin Total 0.6 mg/dL (0.0-1.0); Blood Urea Nitrogen 11 mg/dL (9-16); Calcium 8.6 mg/dL (8.4-10.2); Carbon Dioxide 20 mmol/L (22-29); Chloride 105 mmol/L (96-108); Creatinine Clr Calc Pharmacy 144.1; Estimated Glomerular Filt Rate > 60; Glucose Random 75 mg/dL (60-115); Magnesium 1.7 mg/dL (1.6-2.6); Potassium 4.3 mmol/L (3.3-5.1); Sodium 139 mmol/L (135-145)
[2022-01-23 00:32] VITALS: BP 105/63; PULSE 91; RESP 16; O2SAT 99
== END 2022-01-23 00:48 | disposition home or self-care (01) ==
PROVIDERS: Nurse Practitioner Family; Emergency Provider Internal Medicine; PCP Internal Medicine
DX: E86.0 Dehydration (principal); R42 Dizziness and giddiness; R60.0 Localized edema; Z79.899 Other long term (current) drug therapy
CPT/HCPCS: 36415; 80048; 80076; 83735; 85025; 93971; 99284

== ENCOUNTER 2025-02-25 18:05 | Emergency (ER) | payer OTHER, SELFPAY ==
--- NOTE | ~2025-02-25 | XR_ITS ---
CLINICAL HISTORY: Chest pain Single view of the chest. COMPARISON: None provided. FINDINGS: Normal heart and mediastinal contours. No consolidation. No pleural effusion or pneumothorax. No acute fracture. IMPRESSION: 1. No consolidation. This document has been electronically signed by: Augusto Castillo MD on 02/25/2025 19:00:55
--- NOTE | 2025-02-25 18:06 | ECG_ITS ---
Test Reason : CP Blood Pressure : */* mmHG Vent. Rate : 72 BPM Atrial Rate : 72 BPM P-R Int : 136 ms QRS Dur : 98 ms QT Int : 396 ms P-R-T Axes : 38 43 32 degrees QTcB Int : 433 ms Normal sinus rhythm Nonspecific T wave abnormality Abnormal ECG When compared with ECG of 13-Oct-2021 22:15, Nonspecific T wave abnormality now evident in Anterior leads Referred By: Rashaad Sy Electronically Signed By: HELENA CARTER
[2025-02-25 18:15] VITALS: BP 158/74; PULSE 80; RESP 16; TEMP 36.4; O2SAT 98; BMI 36.6
--- NOTE | 2025-02-25 18:20 | ED.GENADULT ---
HPI - General Adult General Chief complaint: General Medical Stated complaint: chest pain Time Seen by Provider: 02/25/25 20:11 Source: patient Limitations: no limitations History of Present Illness ED Provider: Jannie Ferraro PA-C HPI narrative: 39-year-old female presents with multiple complaints. Patient states she has had generalized headaches, elevated blood pressure, chest discomfort, the sense of feeling shaky and cold for a week. Denies active cough symptoms, fever, diaphoresis, nausea vomiting. Related Data Previous Rx's ?Medication ?Instructions ?Recorded ibuprofen 600 mg tablet 600 mg PO Q6H PRN pain #60 tabs 03/05/20 Allergies Allergy/AdvReac Type Severity Reaction Status Date / Time gluten Allergy Nausea and Verified 02/25/25 18:19 Vomiting Sulfa (Sulfonamide Allergy Hives Verified 02/25/25 18:19 Antibiotics) Review of Systems Review of Systems: Yes all other systems are reviewed and are negative Constitutional: Constitutional: Reports chills, Denies fatigue, Denies fever(s), Reports headache(s) and Reports malaise ENT: Reports headache(s) Cardiovascular: Cardiovascular: Reports chest pain and Denies dyspnea Respiratory: Respiratory: Denies cough and Denies dyspnea Neurologic: Reports headache(s) Endocrine: Endocrine: Denies fatigue PMFSH Past Medical History Attestation statement: The following information was validated with the patient. Medical History PCOS (polycystic ovarian syndrome) Social History Social History Patient Tobacco Use Status: Never used Tobacco Smoked in Last 30 Days: No Substance Use Type: Marijuana Advance Directives: No Advance Directives Information Provided: No Physical Exam ED Vital Signs: Vital Signs - 24 hr 02/25/25 18:15 02/25/25 20:33 02/25/25 20:49 Temperature 97.6 F 98 F 98 F Pulse Rate 80 82 82 Respiratory Rate 16 14 14 Blood Pressure 158/74 H 138/95 H 138/95 H Pulse Oximetry 98 98 98 Oxygen Delivery Method Room Air Room Air Room Air BMI result Body Mass Index 36.6 Const Other: Alert well-appearing Orientation/consciousness: patient oriented x3 Resp Effort & Inspection: normal respiratory effort Cardio Other: Normal peripheral perfusion Skin Other: Warm dry no rash Neuro General: patient oriented x3, gait normal, no focal motor deficits and CN's II-XI intact bilaterally Psych Other: Cooperative Course Course Course Narrative: RME: 39 yold female presents to the ED for hedadache, elevated blood pressure, chest pain, feeling shaking and ringiing in ears for one week. labs, EKG, ordered Medical Decision Making Medical Decision Making [facility] Narrative: 39-year-old female with a history of anxiety, PCOS presents with multiple complaints. Patient states she has had generalized headaches, elevated blood pressure, chest discomfort, the sense of feeling shaky and cold for a week. Denies active cough symptoms, fever, diaphoresis, nausea vomiting. Problem: Anxiety History: Per patient I have considered the following differential diagnoses: Viral syndrome, costochondritis, anxiety/panic attack, pneumonia, hypertensive urgency, hypertensive emergency Plan: Patient's symptoms are not consistent with a ACS, she also has no risk factors for coronary artery disease, screening labs including cardiac enzymes EKG and chest x-ray obtained, to note her heart score is 0. The patient complains of hypertension, although she is not hypertensive. Thought about underlying viral syndrome given the broad constellation of symptoms that she is having, are viral panel was negative, she could be developing viral illness, perhaps costochondritis is contributory to her discomfort. Patient is also very anxious, this could be acute anxiety. I have independently reviewed the following tests: Labs: No leukocytosis, not anemic, no electrolyte abnormality, troponin less than 2.7, not , viral panel negative EKG: Normal sinus rhythm, rate of 72, no active ischemic changes no ectopy, QTC 433 Chest x-ray:INDINGS: Normal heart and mediastinal contours. No consolidation. No pleural effusion or pneumothorax. No acute fracture. IMPRESSION: 1. No consolidation. Differential Diagnosis Differential Diagnoses: The differential diagnosis associated with the presentation includes See [facility] Admission/Observation Consideration of admission/observation: Escalation of care including admission/observation considered Not applicable Lab Data [facility] Lab Attestation statement: I reviewed the patient's lab results. 02/25/25 18:50 02/25/25 18:50 Labs: Lab Results 02/25/25 Range/Units 18:50 WBC 7.8 (4.8-10.8) X10*3/uL RBC 4.53 D (4.20-5.50) X10*6/uL Hgb 13.5 D (12.0-16.0) g/dl Hct 39.6 D (37.0-47.0) % MCV 87.4 (80.0-98.0) fL MCH 29.8 (27.0-33.0) pg MCHC 34.1 (31.0-35.0) g/dl RDW 12.7 (11.0-16.0) % Plt Count 226 (160-400) X10*3/uL MPV 10.2 (9.4-12.3) fL Immature Gran % (Auto) 0.3 (0.0-0.4) % Neut % (Auto) 69.0 (45-73) % Lymph % (Auto) 24.2 (20-40) % [place] % (Auto) 5.7 (2-11) % Eos % (Auto) 0.5 (0-4) % Baso % (Auto) 0.3 (0-2) % Lymph # (Auto) 1.9 (1.2-4.9) X10*3/uL [place] # (Auto) 0.4 (0.1-1.2) X10*3/uL Eos # (Auto) 0.0 (0.0-0.4) X10*3/uL Baso # (Auto) 0.0 (0.0-0.2) X10*3/uL Abs Immat Gran (auto) 0.02 (0.00-0.03) X10*3/uL Absolute Neuts (auto) 5.4 (2.0-8.3) x10*3/uL Absolute Nucleated RBC 0.000 (0.0-0.012) X10*3/uL Nucleated RBC % (auto) 0.0 (0.0-0.2) /100WBC PT 12.5 (11.2-13.5) SEC INR 1.0 (0.9-1.1) APTT 32.2 (26.7-34.1) SEC Sodium 140 (135-145) mmol/L Potassium 3.7 (3.3-5.1) mmol/L Chloride 106 (96-108) mmol/L Carbon Dioxide 27 (22-29) mmol/L Anion Gap 11 L (12-20) BUN 9 (9-16) mg/dL Creatinine 0.70 (0.5-1.4) mg/dL Estim Creat Clear Calc 113.0 Estimated GFR > 60 Random Glucose 128 H (60-115) mg/dL Calcium 9.5 D (8.4-10.2) mg/dL Total Bilirubin 0.2 (0.0-1.0) mg/dL AST 18 (5-31) U/L ALT 16 (0-31) U/L Alkaline Phosphatase 66 (39-117) U/L Troponin I High Sens < 2.7 (<3.5-17.0) ng/L Total Protein 8.1 H (6.5-8.0) g/dL Albumin 4.5 (3.5-5.0) g/dL Beta HCG, Quant < 2 mIU/mL COVID-19 (DOROTEO) Negative (Negative) COVID-19 Clin Com See Note Influenza Type A (DARYL) Negative (Negative) Influenza Type B (DARYL) Negative (Negative) Influenza A & B Note See Note Independent Interpretation I performed an independent interpretation of an: EKG Radiology Impression Discussion of test interpretation with radiology: I have reviewed the radiologist's reading. Discharge Plan Discharge Clinical Impression: Chest pain Patient Disposition: Home, Self-Care Instructions: Noncardiac Chest Pain (ED) Additional Instructions: All of your screening labs including a cardiac enzymes were normal. There were no concerning changes on the EKG at this time. The chest x-ray is clear. Your symptoms are not consistent with cardiac related chest discomfort. Continue to follow up with your primary care provider for further assessment. Prescriptions: No Action ibuprofen 600 mg tablet 600 mg PO Q6H PRN (Reason: pain) Qty: 60 0RF Interventions: ED Discharge Assessment Last Done: 02/25/25 20:49 Discharge Date/Time: 02/25/25 20:49 Print Language: Chinese
[2025-02-25 18:55] LABS: MANUAL DIFF FLAG NO
[2025-02-25 18:57] LABS: Hematocrit 39.6 % (37.0-47.0); Hemoglobin 13.5 g/dl (12.0-16.0); Imm Gran Abs Auto 0.02 X10*3/uL (0.00-0.03); Imm Gran Pct Auto 0.3 % (0.0-0.4); Lymphocytes Absolute Auto 1.9 X10*3/uL (1.2-4.9); Mean Corpuscular HGB Conc 34.1 g/dl (31.0-35.0); Mean Corpuscular Hemoglobin 29.8 pg (27.0-33.0); Mean Corpuscular Volume 87.4 fL (80.0-98.0); NRBC Abs Auto 0.000 X10*3/uL (0.0-0.012); NRBC Pct Auto 0.0 /100WBC (0.0-0.2); Platelet Count 226 X10*3/uL (160-400); Red Blood Count 4.53 X10*6/uL (4.20-5.50); White Blood Count 7.8 X10*3/uL (4.8-10.8)
[2025-02-25 19:03] LABS: INTERNATIONAL NORM RATIO 1.0 (0.9-1.1); Prothrombin Time 12.5 SEC (11.2-13.5)
[2025-02-25 19:06] LABS: Partial Thromboplastin Time 32.2 SEC (26.7-34.1)
[2025-02-25 19:15] LABS: Alanine Aminotransferase 16 U/L (0-31); Albumin Level 4.5 g/dL (3.5-5.0); Alkaline Phosphatase 66 U/L (39-117); Anion Gap 11 (12-20); Aspartate Amino Transferase 18 U/L (5-31); Blood Urea Nitrogen 9 mg/dL (9-16); Calcium 9.5 mg/dL (8.4-10.2); Carbon Dioxide 27 mmol/L (22-29); Chloride 106 mmol/L (96-108); Creatinine Clr Calc Pharmacy 113.0; Estimated Glomerular Filt Rate > 60; Potassium 3.7 mmol/L (3.3-5.1); Sodium 140 mmol/L (135-145); Total Protein 8.1 g/dL (6.5-8.0)
[2025-02-25 19:25] LABS: COVID-19 Test Negative (Negative); IDNOW Serial# 152EDE1D; IDNOW Serial# 16C4AD1C; Influenza B2 Negative (Negative)
[2025-02-25 19:28] LABS: Troponin-I High Sensitivity < 2.7 ng/L (<3.5-17.0)
--- OUTSIDE RECORDS SUMMARY | 2025-02-25 20:29 | XMS_ITS | Clinical Summary ---
Author Organization [facility] [employer] Address [address] [place] [address] Care Team Providers Care Leaf Sorter Name Role Phone Unavailable Primary Care Provider Unavailabl e Social History Tobacco Use Types Packs/Day Years Used Date Smoking Tobacco: Never Assessed Comments Unknown Sex and Gender Information Value Date Recorded Sex Assigned at Not on file Legal Sex Female 2:07 AM EST Gender Identity Not on file Sexual Orientation Not on file Plan of Treatment Health Maintenance Due Date Last Done Comments Depression Screening 1985 HIV Screening 1985 SDOH Screening 1985 Disability Screening 1985 Alcohol/Substance Use Screening 1997 Tobacco Screening 1997 Family Planning (PISQ) 2000 HPV Vaccines (1 - 3-dose series) 2000 Hepatitis C Screening 06/07/2003 DTaP/Tdap/Td Vaccines (1 - Tdap) 2004 Hepatitis B Vaccines (1 of 3 - 19+ 3-dose series) 2004 Pap Smear 2006 Cervical Cancer Screening 06/07/2015 HPV/Cotest 06/07/2015 COVID-19 Vaccine (1 - 2024-2 6 season) 2024 Influenza Vaccine (#1) 2024 Zoster Vaccines (1 of 2) 06/07/2035 RSV Patients and Pa tients Aged 60 years or older (1 - 1-dose 75+ series) 2060 HIB Vaccines Aged Out No longer eligi ble based on patient's age to complete this topic Hepatitis A Vaccines Aged Out No long er eligible based on patient's age to complete this topic IPV Vaccines Aged Out No longer eligi ble based on patient's age to complete this topic Meningococcal B Vaccine Aged Out No l onger eligible based on patient's age to complete this topic Meningococcal Vaccine Aged Out No zita christine eligible based on patient's age to complete this topic Pneumococcal Vaccine: Pediat rics (0 to 5 Years) and At-Risk Patients (6 to 49) Years Aged Out No longer eligible b ased on patient's age to complete this topic RSV under 20 months Aged Out No longe r eligible based on patient's age to complete this topic Rotavirus Vaccines Aged Out No longer eligible based on patient's age to complete this topic
[2025-02-25 20:33] VITALS: BP 138/95; PULSE 82; RESP 14; TEMP 36.6; O2SAT 98
[2025-02-25 20:49] VITALS: BP 138/95; PULSE 82; RESP 14; TEMP 36.6; O2SAT 98
== END 2025-02-25 20:49 | disposition home or self-care (01) ==
PROVIDERS: Physician Assistant; Emergency Provider Emergency Medicine; PCP Internal Medicine
DX: R07.89 Other chest pain (principal); R51.9 Headache, unspecified; R10.20 Pelvic and perineal pain unspecified side; Z11.52 Encounter for screening for COVID-19; Z79.899 Other long term (current) drug therapy
CPT/HCPCS: 36415; 71045; 80053; 84484; 84702; 85025; 85610; 85730; 87502; 87635; 93005; 99284

== ENCOUNTER → 2025-02-25 18:06 | Outpatient (BNV) | payer OTHER, SELFPAY | PROVIDERS: Emergency Provider Emergency Medicine; PCP Internal Medicine; Visit Provider Internal Medicine | DX: R94.31 Abnormal electrocardiogram [ECG] [EKG] (principal); R07.9 Chest pain, unspecified | CPT/HCPCS: 93010 ==

== ENCOUNTER → 2025-02-25 18:25 | Outpatient (BNV) | payer OTHER, SELFPAY | PROVIDERS: PCP Internal Medicine; Visit Provider Radiology Diagnostic Radiology | DX: R07.9 Chest pain, unspecified (principal) | CPT/HCPCS: 71045 ==